=== PATIENT | female | born 1980 | race Caucasian/White ===

== ENCOUNTER 2018-02-20 16:34 | Observation (INO) | payer BC ==
[2018-02-20] MEDS ORDERED: Albuterol/Ipratropium NEB.SOL* Albuterol 2.5 MG/Ipratropium 0.5 MG 3 ML INH ONE (18:03)
--- NOTE | 2018-02-20 18:46 | ED ---
HPI Chest Pain - HPI Summary HPI Summary: This patient is a 37 year old F presenting to [facility] accompanied by her mother with a chief complaint of waxing and waning burning, squeezing left lateral and left anterior CP since 1329. She notes that a few days ago her son had a head cold with a fever, and she was continuously exposed to him. Recently, she denies sx during day, only at night until 02/19/18, when she felt full body aches and lethargy during the day; she took a nap which she only does when sick . Since 1329, she endorses chest discomfort that radiates to bilateral shoulder pain and upper back pain, neck aches, RANDALL, decreased appetite, SOB secondary to CP, hot flashes, and new onset sore throat. She denies cough, wheeze, urinary sx, and pain radiation down her arms. She states that she took Tylenol which improved RANDALL. She notes she received her flu shot on January 29. She states she just finished her LMP last week. FHx DM, CAD, [place]. PMHx IBS , C. Diff, sepsis, glasses, asthma (PRN albuterol rarely used). - History of Current Complaint Chief Complaint: EDChestWallPain Time Seen by Provider: 02/20/18 17:28 Hx Obtained From: Patient Hx Last Menstrual Period: a week ago Onset/Duration: Started Hours Ago, Atraumatic, Still Present Timing: Constant Initial Severity: Moderate Current Severity: Moderate Chest Pain Location: Left Anterior, Left Lateral Chest Pain Radiates: Yes Chest Pain Radiates To:: Back, Shoulder, Arm, Neck Character: Burning, Pressure/Squeezing Aggravating Factor(s): Nothing Alleviating Factor(s): Nothing Associated Signs and Symptoms: Positive: Chest Pain, Headaches, Shortness of Breath - secondary to pain, Back Pain, Other: - Neck pain, RANDALL, lethargy, shoulder pain, neck pain, sore throat, hot flashes.. Negative: Fever, Cough, Wheezing - Additional Pertinent History Primary Care Physician: [id number] - Allergy/Home Medications Allergies/Adverse Reactions: Allergies Allergy/AdvReac Type Severity Reaction Status Date / Time amoxicillin [From Augmentin] Allergy Vomiting Verified 02/20/18 17:22 clavulanic acid Allergy Vomiting Verified 02/20/18 17:22 [From Augmentin] codeine Allergy Vomiting Verified 02/20/18 17:22 Home Medications: Home Medications L. Acidophilus/L. Rhamnosus [Probiotic 15 Billion Cell Cap] 1 each PO DAILY [History Confirmed 02/20/18] PMH/Surg Hx/FS Hx/Imm Hx Endocrine/Hematology History: Denies: Hx Diabetes Cardiovascular History: Denies: Hx Hypertension - ORTHOSTATIC HYOPTENSION/SYNCOPE Respiratory History: Reports: Hx Asthma, Hx Seasonal Allergies GI History: Reports: Hx Gastroesophageal Reflux Disease, Hx Irritable Bowel History: Denies: Hx Dialysis, Hx Renal Disease Musculoskeletal History: Reports: Hx Back Problems - lower lumbar compression fracture in childhood Sensory History: Denies: Hx Legally Blind, Hx Deafness Opthamlomology History: Denies: Hx Legally Blind EENT History: Denies: Hx Deafness Neurological History: Denies: Hx Dementia Psychiatric History: Denies: Hx Schizophrenia - Surgical History Surgery Procedure, Year, and Place: C section August 2011 Hx Anesthesia Reactions: Yes - makes patient sick Infectious Disease History: No Infectious Disease History: Reports: Hx Clostridium Difficile Denies: Traveled Outside the [place] in Last 30 Days - Family History Known Family History: Positive: Cardiac Disease, Diabetes, Other - IBS - Social History Lives: With Family Alcohol Use: Rare Substance Use Type: Reports: None Smoking Status (MU): Never Smoked Tobacco Review of Systems Positive: Fatigue, Other - hot flashes. Negative: Fever, Chills Negative: Erythema Positive: Sore Throat Positive: Chest Pain Positive: Shortness Of Breath. Negative: Cough, Other - wheeze Positive: Other - decreased appetite. Negative: Abdominal Pain, Vomiting, Nausea Negative: dysuria, hematuria Positive: Arthralgia - neck, BL shoulders, upper back, , Myalgia - all over, back, shoulders, neck. Negative: Edema Negative: Rash Neurological: Other - NEGATIVE: dizziness Positive: Headache All Other Systems Reviewed And Are Negative: Yes Physical Exam - Summary Physical Exam Summary: Constitutional: Well-developed, Well-nourished, Alert. (-) Distressed Skin: Warm, Dry HENT: Normocephalic; Atraumatic Eyes: Conjunctiva normal Neck: Musculoskeletal ROM normal neck. (-) JVD, (-) Stridor, (-) Tracheal deviation Cardio: Rhythm regular, rate normal, Heart sounds normal; Intact distal pulses; The pedal pulses are 2+ and symmetric. Radial pulses are 2+ and symmetric. (-) Murmur Pulmonary/Chest wall: Effort normal. (-) Respiratory distress, (-) Wheezes, (-) Rales. No reproducible tenderness. Abd: Soft, (-) epigastric tenderness, (-) Distension, (-) Guarding, (-) Rebound Musculoskeletal: (-) Edema Lymph: (-) Cervical adenopathy Neuro: Alert, Oriented x3 Psych: Mood and affect Normal Triage Information Reviewed: Yes Vital Signs On Initial Exam: Initial Vitals Temp Pulse Resp BP Pulse Ox 97.9 F 92 19 131/77 98 02/20/18 16:36 02/20/18 16:36 02/20/18 16:36 02/20/18 16:36 02/20/18 16:36 Vital Signs Reviewed: Yes Diagnostics - Vital Signs Vital Signs Temp Pulse Resp BP Pulse Ox 02/20/18 17:01 87 15 145/84 98 02/20/18 16:36 97.9 F 92 19 131/77 98 - Laboratory Result Diagrams: 02/20/18 18:50 02/20/18 18:50 Lab Statement: Any lab studies that have been ordered have been reviewed, and results considered in the medical decision making process. - Radiology CXR Xray Interpretation: Positive (See Comments) Radiology Interpretation Completed By: ED Physician - Peribronchial cuffing. Pending official imaging report. - CT CTA chest/thorax CT Interpretation: No Acute Changes CT Interpretation Completed By: Radiologist - Normal CTA chest, no pulmonary embolism. Dr. Chin has reviewed this report. - EKG 2133 Cardiac Rate: NL - 96 EKG Rhythm: Sinus Rhythm Ectopy: None EKG Interpretation: Infero-lateral T-wave flattening. No STEMI. 1645 Cardiac Rate: NL - 81 EKG Rhythm: Sinus Rhythm ST Segment: Normal Ectopy: None EKG Interpretation: No STEMI. Chest Pain Course/Dx - Course Course Of Treatment: A 37-year-old F presents to the ED with a CC of burning, squeezing left anterior and left lateral CP since 1330. (+) RANDALL, decreased appetite, hot flashes, SOB secondary to CP, new onset sore throat, and pain radiation to neck, upper back, BL shoulders. (-) cough, wheeze, urinary sx. her son was sick a couple of days ago with head cold and fever. she experienced RANDALL and aches before the CP and pain radiation. A CXR reveals peribroncial puffing. A CTA chest/thorax was (-). An EKG at 1645 reveals NSR at 82 BPM, no STEMI. An EKG at 2133 reveals NSR at 96 BPM and infero-lateral t-wave flattening. In the ED course, pt was given . aDMISSION, STRESS TEST, d/w [place] - Diagnoses Provider Diagnoses: Chest pain, Acute electrocardiogram changes - Provider Notifications Discussed Care Of Patient With: Brain Smith Time Discussed With Above Provider: 22:00 Instructed by Provider To: Other - accepts admission Discharge - Sign-Out/Discharge Documenting (check all that apply): Patient Departure - admit - Discharge Plan Condition: Fair Disposition: ADMITTED TO [facility] Referrals: Omar Newell, [employer] [Primary Care Provider] - - Attestation Statements Document Initiated by Scribe: Yes Documenting Scribe: Anibal Sheppard Provider For Whom Scribe is Documenting (Include Credential): Dr. Jonathan Chin MD Scribe Attestation: Anibal Wayne, scribed for Dr. Jonathan Chin MD on 02/20/18 at 9297.
[2018-02-20 18:59] LABS: ABS Basophils 0 10^3/ul (0-0.2); ABS Eosinophils 0 10^3/ul (0-0.6); ABS Lymphocytes 0.8 10^3/ul (1.0-4.8); ABS Monocytes 0.2 10^3/ul (0-0.8); ABS Neutrophils 2.7 10^3/ul (1.5-7.7); ABS Nucleated RBC 0 10^3/ul; Eosinophil % 0.3 % (0-6); Hematocrit 39 % (35-47); Hemoglobin 13.2 g/dl (12.0-16.0); Lymphocyte % 22.4 % (25-47); Mean Corpuscular HGB Conc 34 g/dl (31-36); Mean Corpuscular Hemoglobin 28 pg (27-31); Mean Corpuscular Volume 82 fL (80-97); Mean Platelet Volume 8.5 um3 (7.4-10.4); Nucleated Red Blood Cells % 0.1; Platelet Count 160 10^3/ul (150-450); Red Blood Count 4.76 10^6/ul (4.00-5.40); Red Cell Distribution Width 13 % (10.5-15); White Blood Count 3.8 10^3/ul (3.5-10.8)
[2018-02-20 19:24] LABS: EGFR Non-African American 96.8 (>60)
[2018-02-20] MEDS ORDERED: methylPREDNISolone 125 MG* 2 ML VIAL IV ONE (19:36)
[2018-02-20] MEDS ORDERED: Dexamethasone IV* 4 MG/ML 1 ML (4 MG) IV SLOW PU ONE (19:37)
[2018-02-20] MEDS ORDERED: Iohexol 350* (CONTRAST) 500 ML MDV IV ONE (20:07)
--- NOTE | 2018-02-20 20:54 | RAD ---
EXAM: CT Angiography Chest With Intravenous Contrast CLINICAL HISTORY: 37 years old, female; Pain; Chest pain; Type not specified; Additional info: Cp, SOB, eval for pe TECHNIQUE: Axial computed tomographic angiography images of the chest with intravenous contrast using pulmonary embolism protocol. All CT scans at this facility use at least one of these dose optimization techniques: automated exposure control; mA and/or kV adjustment per patient size (includes targeted exams where dose is matched to clinical indication); or iterative reconstruction. MIP reconstructed images were created and reviewed. Coronal and sagittal reformatted images were created and reviewed. CONTRAST: 65 mL of OMNIPAQUE 350 administered intravenously. COMPARISON: OT CXR PORTAP CHEST AP PORTABLE 08/25/2014 5:40 PM FINDINGS: Pulmonary arteries: Unremarkable. No pulmonary embolism. Aorta: No acute findings. No thoracic aortic aneurysm. Lungs: Unremarkable. No mass or consolidation. Pleural space: Unremarkable. No pleural effusion or pneumothorax. Heart: Unremarkable. No significant pericardial effusion. No evidence of RV dysfunction. Bones/joints: No acute fracture or aggressive osseous lesion. Soft tissues: Unremarkable. Lymph nodes: Unremarkable. No enlarged lymph nodes. IMPRESSION: Normal chest CTA. No pulmonary embolism.
[2018-02-20] MEDS ORDERED: Ibuprofen TAB* 600 MG PO ONE (21:17)
[2018-02-20] MEDS ORDERED: Albuterol 2.5 MG/3 ML NEB.SOL* (0.083%) INH ONE (21:23)
[2018-02-20] MEDS ORDERED: Ketorolac INJ* 30 MG/ML 1 ML VIAL IV PUSH ONE (21:29)
[2018-02-20] MEDS ORDERED: Melatonin 3 MG TAB PO PRN (22:23)
[2018-02-20] MEDS ORDERED: Aspirin 81 mg CHEW TAB* 81 MG TAB.CHEW PO ONE (22:23)
[2018-02-20] MEDS ORDERED: Ondansetron ODT TAB* 4 MG PO PRN (22:23)
[2018-02-20] MEDS ORDERED: Metoprolol Tartrate TAB* 25 MG PO ONE (22:24)
[2018-02-20] MEDS ORDERED: NS 0.9% 1000 ML* 1,000 ML IV SCH (22:30)
--- NOTE | 2018-02-20 22:42 | HP ---
H&P (Free Text) History and Physical: PCP: Aicha Newell NP Date/Time: 02/20/2018 2200 CC: chest pain, malaise HPI: Mrs Dela Cruz is a 37YO healthy female whose 6YO son recently had a fever of 102F. Yesterday she was noticeable fatigued with myalgias. Today at work she had a mild headache and around 1330 developed the sudden moderate/severe onset of sharp to dull aching L inframammary chest wrapping around the left to the back worse with deep inspiration and movement and associated with hot flashes, but no F/C, sweats, SOB, light-headedness, changes in bowel/bladder, rash, cough , congestion, or other issues. Tums & GasX did not help. Co-workers convinced her to come to the ED for evaluation which reveals negative blood work excepting a CRP of 30. Initial ECG was normal, but repeat showed diffuse ST-T flattening. Troponins have been negative. Vitals stable. She did develop tachycardia and palpitations after administration of albuterol. PMedHx neurocardiogenic syncope seasonal allergies Ambulatory Orders Multivitamins/Minerals TAB* [Thera M Plus TAB*] 1 tab PO DAILY 04/19/13 Norgestimate-Ethinyl Estradiol [Ortho Tri-Cyclen Lo] 1 tab PO DAILY 04/19/13 Cetirizine* [ZyrTEC 10 MG TAB*] 10 mg PO DAILY 04/16/16 L. Acidophilus/L. 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 ; , 6YO son; full code status FamHx: no early onset CAD/CVA/PAOD; sick contact in son as above ROS: as above, otherwise reviewed and all were negative vitals: Vital Signs Temp 36.6 C 02/20/18 16:36 Pulse 109 02/20/18 22:01 Resp 19 02/20/18 22:01 BP 140/84 02/20/18 22:01 Pulse Ox 98 02/20/18 22:01 Intake & Output 02/19/18 02/20/18 02/20/18 23:59 11:59 23:59 Weight 71.214 kg Constitutional: NAD, normally developed, well-nourished white female HEENM: atraumatic; sclera/conjunctiva: anicteric/clear; hearing: intact; oropharynx: clear, mucosa moist Neck: soft tissue: no nuchal rigidity; thyroid: normal Pulmonary: clear to auscultation bilaterally, good aeration, no accessory muscle use CV: RR/RR, normal S1S2, no carotid bruit, no jugular venous distention, 2+ B DP/ PT, no edema Abdominal: soft, non-distended, non-tender, no rebound/guarding/rigidity, normoactive bowel sounds, no hepatosplenomegaly or masses, no costovertebral angle tenderness Musculoskeletal: general: grossly intact; gait: stable Integumental: no rash or vesicular eruption corresponding to pain Psychiatric orientation: AA&O to PPS affect: calm mood: cooperative/pleasant eye contact: good content: reliable responses: timely insight: good Testing: Lab Results 02/20/18 02/20/18 02/20/18 Range/Units 18:50 18:50 18:50 WBC 3.8 (3.5-10.8) 10^3/ul RBC 4.76 (4.00-5.40) 10^6/ul Hgb 13.2 (12.0-16.0) g/dl Hct 39 (35-47) % MCV 82 (80-97) fL MCH 28 (27-31) pg MCHC 34 (31-36) g/dl RDW 13 (10.5-15) % Plt Count 160 (150-450) 10^3/ul MPV 8.5 (7.4-10.4) um3 Neut % (Auto) 72.2 (38-83) % Lymph % (Auto) 22.4 L (25-47) % Grady % (Auto) 4.5 (0-7) % Eos % (Auto) 0.3 (0-6) % Baso % (Auto) 0.6 (0-2) % Absolute Neuts (auto) 2.7 (1.5-7.7) 10^3/ul Absolute Lymphs (auto) 0.8 L (1.0-4.8) 10^3/ul Absolute Monos (auto) 0.2 (0-0.8) 10^3/ul Absolute Eos (auto) 0 (0-0.6) 10^3/ul Absolute Basos (auto) 0 (0-0.2) 10^3/ul Absolute Nucleated RBC 0 10^3/ul Nucleated RBC % 0.1 Sodium 136 (135-145) mmol/L Potassium 3.6 (3.5-5.0) mmol/L Chloride 103 (101-111) mmol/L Carbon Dioxide 26 (22-32) mmol/L Anion Gap 7 (2-11) mmol/L BUN 13 (6-24) mg/dL Creatinine 0.68 (0.51-0.95) mg/dL Est GFR ( Amer) 117.2 (>60) Est GFR (Non-Af Amer) 96.8 (>60) BUN/Creatinine Ratio 19.1 (8-20) Glucose 96 (70-100) mg/dL Lactic Acid 1.2 (0.5-2.0) mmol/L Calcium 10.0 (8.6-10.3) mg/dL Total Bilirubin 0.30 (0.2-1.0) mg/dL AST 22 (13-39) U/L ALT 18 (7-52) U/L Alkaline Phosphatase 67 (34-104) U/L Troponin I 0.00 (<0.04) ng/mL C-Reactive Protein 30.11 H (<8.01) mg/L Total Protein 7.3 (6.4-8.9) g/dL Albumin 4.4 (3.2-5.2) g/dL Globulin 2.9 (2-4) g/dL Albumin/Globulin Ratio 1.5 (1-3) Influenza A (Rapid) (Negative) Influenza B (Rapid) (Negative) 02/20/18 02/20/18 Range/Units 18:52 20:47 WBC (3.5-10.8) 10^3/ul RBC (4.00-5.40) 10^6/ul Hgb (12.0-16.0) g/dl Hct (35-47) % MCV (80-97) fL MCH (27-31) pg MCHC (31-36) g/dl RDW (10.5-15) % Plt Count (150-450) 10^3/ul MPV (7.4-10.4) um3 Neut % (Auto) (38-83) % Lymph % (Auto) (25-47) % Grady % (Auto) (0-7) % Eos % (Auto) (0-6) % Baso % (Auto) (0-2) % Absolute Neuts (auto) (1.5-7.7) 10^3/ul Absolute Lymphs (auto) (1.0-4.8) 10^3/ul Absolute Monos (auto) (0-0.8) 10^3/ul Absolute Eos (auto) (0-0.6) 10^3/ul Absolute Basos (auto) (0-0.2) 10^3/ul Absolute Nucleated RBC 10^3/ul Nucleated RBC % Sodium (135-145) mmol/L Potassium (3.5-5.0) mmol/L Chloride (101-111) mmol/L Carbon Dioxide (22-32) mmol/L Anion Gap (2-11) mmol/L BUN (6-24) mg/dL Creatinine (0.51-0.95) mg/dL Est GFR ( Amer) (>60) Est GFR (Non-Af Amer) (>60) BUN/Creatinine Ratio (8-20) Glucose (70-100) mg/dL Lactic Acid (0.5-2.0) mmol/L Calcium (8.6-10.3) mg/dL Total Bilirubin (0.2-1.0) mg/dL AST (13-39) U/L ALT (7-52) U/L Alkaline Phosphatase (34-104) U/L Troponin I 0.00 (<0.04) ng/mL C-Reactive Protein (<8.01) mg/L Total Protein (6.4-8.9) g/dL Albumin (3.2-5.2) g/dL Globulin (2-4) g/dL Albumin/Globulin Ratio (1-3) Influenza A (Rapid) Negative (Negative) Influenza B (Rapid) Negative (Negative) ECG, personally reviewed: initially NSR rate 81, no ischemia; follow up: NSR rate 91, diffuse ST-T flattening CXR, personally reviewed: no acute process CTA chest, personally reviewed: IMPRESSION: Normal chest CTA. No pulmonary embolism. Impression: 37F HX neurocardiogenic syncope presents with atypcial chest pain & malaise DIAGNOSIS & PLAN Primary atypcial chest pain w/ ECG changes & malaise : dDX viral syndrome vs pericarditis vs zoster sin herpete vs less likely ACS : telemetry : trend troponin : NSAIDS : ECHO in AM : exercise stress test in AM : trend WBCs & temp curves : supplemental oxgen : supportive care Admission Rational: observation for r/o ACS DVTp: JR Code Status: full HCP:
[2018-02-20] MEDS ORDERED: Metoprolol Tartrate TAB* 25 MG ONE (23:18)
[2018-02-21] MEDS ORDERED: Omeprazole CAP* 20 MG PO SCH (06:00)
[2018-02-21 06:23] LABS: Hematocrit 37 % (35-47); Hemoglobin 12.6 g/dl (12.0-16.0); Mean Corpuscular HGB Conc 34 g/dl (31-36); Mean Corpuscular Hemoglobin 28 pg (27-31); Mean Corpuscular Volume 83 fL (80-97); Mean Platelet Volume 8.7 um3 (7.4-10.4); Platelet Count 163 10^3/ul (150-450); Red Blood Count 4.49 10^6/ul (4.00-5.40); Red Cell Distribution Width 13 % (10.5-15)
--- NOTE | 2018-02-21 06:47 | RAD ---
INDICATION: Shortness of breath. COMPARISON: Comparison is made to prior study from August 25, 2014. TECHNIQUE: Dual-energy PA and lateral views of the chest were obtained. FINDINGS: The heart is within normal limits in size. Mediastinal and hilar contours appear within normal limits. The lungs are clear. No pleural effusion is present. IMPRESSION: NO EVIDENCE FOR ACTIVE CARDIOPULMONARY DISEASE. R1
[2018-02-21] MEDS ORDERED: Ibuprofen TAB* 600 MG PO SCH (07:00)
--- NOTE | 2018-02-21 11:12 | ECHO ---
Patient: ANATOLIY QURESHI [facility] Rec#: [id number] : 1980 Date: 02/21/2018 Age: 37y Height: 170 cm / 66.9 in Weight: 71 kg / 156.5 lbs Sex: F BSA: 1.82 Room#: 440 Admit Date#: 02/20/2018 Type: Inpatient Referring: Brain Smith MD Reading: Estuardo Moss DO [employer] Tender: Michelle Rose,SUNNYCS,RDMS CC: Omar Newell NP Transthoracic Echocardiogram Indication: CP BP: 101/50 HR: 61 Rhythm: NSR Findings History: Hypotension, syncope Technical Comments: The study quality is fair. The study is technically limited due to poor parasternal windows. Left Ventricle: The left ventricular chamber size is normal. There is no left ventricular hypertrophy. Global left ventricular wall motion and contractility are within normal limits. There is normal left ventricular systolic function. The estimated ejection fraction is 60-65%. Normal left ventricular diastolic filling is observed. Left Atrium: The left atrial chamber size is normal. Right Ventricle: The right ventricular chamber size and systolic function are within normal limits. Right Atrium: The right atrial cavity size is normal. Aortic Valve: The aortic valve is trileaflet. Systolic excursion of the aortic valve is normal. There is no evidence of aortic regurgitation. There is no evidence of aortic stenosis. Mitral Valve: The mitral valve leaflets appear normal. There is a trace of mitral regurgitation. There is no evidence of mitral stenosis. Tricuspid Valve: The tricuspid valve leaflets are normal. There is trace tricuspid regurgitation. Unable to estimate the right ventricular systolic pressure. Pulmonic Valve: The pulmonic valve structure is not well visualized. There is no evidence of pulmonic valve thickening. There is no evidence of pulmonic regurgitation. Pericardium: There is no significant pericardial effusion. Aorta: The ascending aorta is not well visualized. There is no dilatation of the aortic arch. The aortic root is normal in size. Pulmonary Artery: The main pulmonary artery is not well visualized. Venous: The inferior vena cava appears normal in size. There is a greater than 50% respiratory change in the inferior vena cava dimension. Conclusions The left ventricular chamber size is normal. There is no left ventricular hypertrophy. There is normal left ventricular systolic function. The estimated ejection fraction is 60-65%. Global left ventricular wall motion and contractility are within normal limits. The left atrial chamber size is normal. The right ventricular chamber size and systolic function are within normal limits. No significant valvular abnormalities noted There is no significant pericardial effusion. None prior for comparison at time of interpretation Measurements Name Value Normal Range RVIDd (AP) 2D 3.1 cm (0.9 - 2.6) RVDdMajor (2D) 2.6 cm (2.2 - 4.4) RAd ISD 4CH 4.3 cm (3.4 - 4.9) RA (A4C)W 2.3 cm (2.9 - 4.6) IVSd (2D) 0.8 cm (0.6 - 1) LVPWd (2D) 0.9 cm (0.6 - 1) LVIDd (2D) 4.6 cm (3.6 - 5.4) LVIDs (2D) 3.3 cm - LV FS 28 % - Aortic Annulus 2.2 cm (1.4 - 2.6) Ao root diameter (2D) 2.8 cm (2.1 - 3.5) Aortic arch 2.5 cm (1.8 - 3.4) LA dimension (AP) 2D 3.4 cm (2.3 - 3.8) LAd ISD 4CH 5.6 cm (2.9 - 5.3) LA ISD 4CH W 3.7 cm (2.5 - 4.5) Name Value Normal Range LA ESV BP (A/L) index 28 ml/m2 - Name Value Normal Range MV E-wave Vmax 0.6 m/sec - MV deceleration time 180 msec - MV A-wave Vmax 0.4 m/sec - MV E:A ratio 1.7 ratio - P. vein S-wave Vmax 0.6 m/sec - P. vein D-wave Vmax 0.5 m/sec - P. vein S:D Vmax ratio 1.2 ratio - P. vein A-wave duration 121 msec - LV septal e' Vmax 0.1 m/sec - LV lateral e' Vmax 0.16 m/sec - LV E:e' septal ratio 6 ratio - LV E:e' lateral ratio 4 ratio - Name Value Normal Range AV Vmax 1.3 m/sec - AV VTI 26 cm - AV peak gradient 7 mmHg - AV mean gradient 3 mmHg - LVOT Vmax 1 m/sec - LVOT VTI 22 cm - LVOT peak gradient 4 mmHg - LVOT mean gradient 2 mmHg - DRAKE Vmax 1.2 m/sec - Name Value Normal Range RAP 8 mmHg - IVC diameter 1.7 cm - Name Value Normal Range PV Vmax 0.7 m/sec - PV peak gradient 2 mmHg -
--- NOTE | 2018-02-21 11:45 | RAD ---
INDICATION: Chest pain, malaise. COMPARISON: No relevant prior exams available on the [facility] PACS for comparison. TECHNIQUE: 10.280 mCi of Tc-99m Myoview were administered IV. SPECT images of the heart were obtained. No CT obtained for attenuation correction. The stress portion of the exam was canceled by Dr. Moss. FINDINGS: Rest images demonstrate a partial perfusion defect involving the posterior mid septal region. IMPRESSION: #. Rest only LEFT ventricular scintigraphy remarkable for a small region of decreased perfusion at the mid posterior septum. This is an indeterminate finding without a stress exam for correlation.
[2018-02-21 12:03] VITALS: BP 93/58
[2018-02-21] MEDS ORDERED: Metoprolol Tartrate TAB* 25 MG PO ONE (22:24)
--- NOTE | 2018-02-22 07:11 | DS ---
CC: Omar Newell NP; Nuha Hernandez MD * DISCHARGE SUMMARY: DATE OF ADMISSION: 02/20/18 DATE OF DISCHARGE: 02/21/18 PRIMARY CARE PROVIDER: Omar Newell NP NEW PRIMARY CARE PROVIDER: Nuha Hernandez MD DISCHARGE DIAGNOSES: 1. Atypical chest pain, likely musculoskeletal. 2. Possible viral infection. MEDICATIONS: 1. Probiotic 1 capsule p.o. daily. 2. Ortho Tri-Cyclen Lo 1 tablet p.o. daily. 3. Multivitamin 1 tablet p.o. daily. 4. Cetirizine 10 mg p.o. daily. New medications: 1. Ibuprofen 600 mg p.o. q.8 hours p.r.n. pain. 2. Acetaminophen 650 mg p.o. q.6 hours p.r.n. pain or fever. HOSPITAL COURSE: Mrs. Dela Cruz is a 37-year-old lady with a past medical history of seasonal allergies, asthma, neurocardiogenic syncope who presented to the emergency room with complaints of chest pain and malaise. Of note is the fact that her son became febrile recently and the day prior to admission, she had fatigue, myalgias, and malaise. She also had some mild headache, some nausea and later on developed chest pain. For more details about her presentation, I refer you to her history and physical. The patient was admitted to the telemetry floor where she had no significant arrhythmias. Serial troponins were negative and her CBC did show mild leukopenia with lymphopenia. She remained afebrile while in the hospital and had improvement of the chest pain. A CTA of the chest was normal with no pulmonary embolism. An echocardiogram showed ejection fraction 60% to 65% and there was no significant pericardial effusion. She underwent an exercise stress test that was negative. Her chest pain was reproducible on palpation and the impression is that the chest pain is musculoskeletal. Her other symptoms may be secondary to a viral infection. The patient is medically stable to be discharged home today to continue symptomatic treatment at home. DIET: Regular diet. ACTIVITY: As tolerated. DISPOSITION: To home. STATUS WHILE IN THE HOSPITAL: Observation. Please keep in mind that this is a summarized version of this patient's hospital stay. If you need more information, please feel free to call me at [phone] or please obtain the full medical records. TIME SPENT: Approximately 40 minutes were spent to complete this discharge. [id number]/CPS #: [id number]
== END 2018-02-21 15:20 | disposition home or self-care (01) ==
LOC: ED 16:34 → MEDTELE 22:19
PROVIDERS: ADMIT Hospitalist; ATTEND Internal Medicine
DX: R07.89 Other chest pain (principal); Z79.899 Other long term (current) drug therapy; Z88.0 Allergy status to penicillin; Z88.8 Allergy status to other drugs, medicaments and biological substances; R00.0 Tachycardia, unspecified; R51 Headache; R06.02 Shortness of breath; Z88.1 Allergy status to other antibiotic agents; R55 Syncope and collapse
CPT/HCPCS: 36415; 71046; 71275; 78451; 80053; 83605; 84484; 84702; 85025; 85027; 86140; 93005; 93306; 96374; 96375; 99285; A9270-GY; A9502; G0378; J1100; J1885; Q9967

== ENCOUNTER 2019-01-24 11:38 | Emergency (ER) | payer BC ==
--- OUTSIDE RECORDS SUMMARY | 2019-01-24 12:02 | XMS REPORT | Continuity of Care Document ---
:1980 External Reference #:[id number] Author Name PHYLLIS Neil Address [address] [place] [address] Care Team Providers Name Role Phone Nuha Hernandez M.D. Care Team Information Agricultural Agent Unavailable Nuha Hernandez M.D. Primary Care Physician Unavailable Payers Date Identification Numbers Payment Provider Subscriber Effective: 2017 Policy Number: [id number] /BS Of JESUS Hali Dela Cruz PayID: [id number] [address] [address] [place] [address] Problems Active Problems Provider Date Atopic dermatitis Nuha Hernandez M.D. Onset: 04/23/2018 Family History Date Family Member(s) Observation Comments Father 65 Father Polymyalgia Rheumatica Father Asthma Mother Irritable Bowel Syndrome Mother Gastroesophageal Reflux Disease (GERD) First Son Asthma First Sister No Current Problems Social History Type Date Description Comments Sex Unknown Marital Status . Lives With Spouse Lives With 2012 Son Diet Healthy, Well Balanced Sleep Reports normal sleep activity [place] [employer] Tobacco Use Start: Unknown Never Smoked Cigarettes ETOH Use Social Alcohol Tobacco Use Start: Unknown Nonsmoker Smoking Status Reviewed: 07/14/18 Nonsmoker Exercise Type/Frequency Exercises regularly take care of animals horse, chickens Allergies, Adverse Reactions, Alerts Active Allergies Reaction Severity Comments Date Clindamycin cdiff, septic 12/26/2018 Inactive Allergies NKDA 04/23/2018 Medications Active Medications SIG Qnty Indications Ordering Provider Date Meclizine HCL take 1 by mouth 90tabs R42 Corazon 12/26/2018 25mg every 8 hours as Nehemias, CAN TENDER Tablets needed dizziness Naproxen 1 by mouth twice a 60tabs R42 Corazon 12/26/2018 500mg day with food Nehemias, CAN TENDER Tablets Rizatriptan Benzoate take one tablet by 14ta G43.109 Corazon 2018 mouth as directed Nehemias, CAN TENDER 5mg Tablets with onset, may repeat in 4 hours if effective first dose Proair Respiclick 1-2 puffs every 6 1units Nuha Hernandez, 04/23/2018 hours as needed M.D. 108(90Base) mcg/Act Aerosol Low-Ogestrel 1 by mouth every Unknown day 0.3-30mg-mcg Tablets Multi For Her Unknown Capsules Zyrtec Allergy take one tablet Unknown 10mg per day Tablets Probiotic 1 by mouth every Unknown Capsules day History Medications Note For Work pt was seen here Asha May, 07/13/2018 - today, tested + Afnp-C 07/20/2018 for flu A , treatment was started today will return to work in 1 week Oseltamivir Phosphate 1 by mouth twice a 10caps Asha May, 2018 - day x 5 days Afnp-C 07/23/2018 75mg Capsules Mometasone Furoate apply to affected 45gm Nuha Hernandez M.D. 07/06/2018 - 0.1% area twice a day x 12/26/2018 Cream 1 week then as needed Eucrisa apply twice a day 60gm Nuha Hernandez M.D. 04/23/2018 - 2% Ointment on ears as needed 12/26/2018 Vital Signs Date Vital Result Comment 12/26/2018 3:38pm BP Systolic 108 mmHg BP Diastolic 70 mmHg Heart Rate 90 /min Body Temperature 97.9 F Height 68 inches 5'8" Weight 164.00 lb BMI (Body Mass Index) 24.9 kg/m2 07/13/2018 12:04pm BP Systolic 100 mmHg BP Diastolic 70 mmHg Heart Rate 96 /min Body Temperature 98.1 F Respiratory Rate 18 /min Height 68 inches 5'8" Weight 162.00 lb BMI (Body Mass Index) 24.6 kg/m2 04/23/2018 3:22pm BP Systolic 120 mmHg BP Diastolic 68 mmHg Heart Rate 72 /min Body Temperature 97.9 F Respiratory Rate 18 /min Height 68 inches 5'8" Weight 165.00 lb BMI (Body Mass Index) 25.1 kg/m2 Results Test Date Facility Test Result H/L Range Note Influenza A&B-fma 07/13/2018 [facility] Influenza A POSITIVE (607)- - Influenza B NEGATIVE CBC Auto Diff 05/08/2018 [facility] [place] Blood Count 5.4 10^3/uL N 3.5-10.8 Red Blood Count 4.79 10^6/uL N 4.00-5.40 Hemoglobin 13.3 g/dL N 12.0-16.0 Hematocrit 40 % N 35-47 Mean Corpuscular Volume 84 fL N 80-97 Mean Corpuscular Hemoglobin 28 pg N 27-31 Mean Corpuscular HGB Conc 33 g/dL N 31-36 Red Cell Distribution Width 13 % N 10.5-15 Platelet Count 220 10^3/uL N 150-450 Mean Platelet Volume 9.2 fL N 7.4-10.4 Abs Neutrophils 2.8 10^3/uL N 1.5-7.7 Abs Lymphocytes 2.1 10^3/uL N 1.0-4.8 Abs Monocytes 0.3 10^3/uL N 0-0.8 Abs Eosinophils 0.1 10^3/uL N 0-0.6 Abs Basophils 0 10^3/uL N 0-0.2 Abs Nucleated RBC 0 10^3/uL Granulocyte % 52.2 % Lymphocyte % 39.4 % Monocyte % 5.6 % Eosinophil % 2.2 % Basophil % 0.6 % Nucleated Red Blood Cells % 0 Comp Metabolic Panel 05/08/2018 [facility] [place] 138 mmol/L N 135-145 Potassium 3.8 mmol/L N 3.5-5.0 Chloride 104 mmol/L N 101-111 Co2 Carbon Dioxide 28 mmol/L N 22-32 Anion Gap 6 mmol/L N 2-11 Glucose 84 mg/dL N 70-100 Blood Urea Nitrogen 17 mg/dL N 6-24 Creatinine 0.69 mg/dL N 0.51-0.95 BUN/Creatinine Ratio 24.6 High 8-20 Calcium 9.3 mg/dL N 8.6-10.3 Total Protein 6.8 g/dL N 6.4-8.9 Albumin 4.2 g/dL N 3.2-5.2 Globulin 2.6 g/dL N 2-4 Albumin/Globulin Ratio 1.6 N 1-3 Total Bilirubin 0.30 mg/dL N 0.2-1.0 Alkaline Phosphatase 73 U/L N 34-104 Alt 10 U/L N 7-52 Ast 13 U/L N 13-39 Egfr Non- 95.2 >60 Egfr 115.2 >60 1 Lipid Profile (Trig/Chol/HDL) 05/08/2018 [facility] [place]iglycerides 217 mg/dL 2 Cholesterol 231 mg/dL 3 HDL Cholesterol 60.7 mg/dL 4 LDL Cholesterol 127 mg/dL 5 Laboratory test finding 05/08/2018 [facility] TSH (Thyroid Stim 1.40 mcIU/mL N 0.34-5.60 Horm) 1 Because ethnic data is not always readily available, this report includes an eGFR for both -Americans and non- Americans. The National Kidney Disease Education Program (NKDEP) does not endorse the use of the MDRD equation for patients that are not between the ages of 18 and 70, are , have extremes of body size, muscle mass, or nutritional status, or are non- or non-. According to the National Kidney Foundation, irrespective of diagnosis, the stage of the disease is based on the level of kidney function: Stage Description GFR(mL/min/1.73 m(2)) 1 Kidney damage with normal or decreased GFR 90 2 Kidney damage with mild decrease in GFR 60-89 3 Moderate decrease in GFR 30-59 4 Severe decrease in GFR 15-29 5 Kidney failure <15 (or dialysis) 2 Desirable: <150 Borderline High: 150-199 High: 200-499 Very High: >500 3 Desirable: <200 Borderline High: 200-239 High: >239 4 Low: <40 Desirable: 40-60 High: >60 5 Desirable: <100 Near Optimal: 100-129 Borderline High: 130-159 High: 160-189 Very High: >189 Encounters Type Date Location Provider Dx Diagnosis Office Visit 07/13/2018 Main Office Madhav Diego10.1 Flu due to oth 12:00p Afnp-C ident influenza virus w oth resp manifest Office Visit 04/23/2018 [facility] Office Nuha Hernandez, L20.84 Intrinsic 3:20p M.D. (allergic) eczema Z00.01 Encounter for general adult medical exam w abnormal findings Plan of Treatment 12/26/2018 - ALFREDO NeilPH53.8 Other visual [id number] Dizziness and giddinessNew Medication:Meclizine HCL 25 mg - take 1 by mouth every 8 hours as needed dizzinessNaproxen 500 mg - 1 by mouth twice a day with foodG43.109 Migraine with aura, not intractable, without status migrainoNew Medication: Rizatriptan Benzoate 5 mg - take one tablet by mouth as directed with onset, may repeat in 4 hours if effective first doseComments:today/tonight trial big doses naproxen with meclizine, go to bed; if you don't rouse tomorrow with relief, try TRIPTAN, and if it fails to provide relief proceed to Emergency Room or returnAllComments:Medication Management Patient Understands medications he 's taking? Yes No Are there Barriers to Adherence? Yes No Has the patient been asked about herbal supplements and therapies, andOTC meds ? Yes No As always, we strongly encourage a healthy diet and making physical activity a part of your every day life. If you have questions about how or where to start, please contact the office.
[2019-01-24] MEDS ORDERED: Ibuprofen TAB* 600 MG PO ONE (13:18)
[2019-01-24 13:59] VITALS: BP 148/88
--- NOTE | 2019-01-25 05:14 | ED ---
Lower Extremity - HPI Summary HPI Summary: This patient is an otherwise healthy 38-year-old female presenting to the ED with a left foot injury. Patient states she was backing up her horse from a trailer when the horse was spooked, stepping onto her boot and dragging the foot backwards. Patient was able to remove the boot prior to any swelling. She endorses some swelling and ecchymosis to the anterior/dorsum of the midfoot without heel or ankle involvement. She has not been ambulatory. She endorses pain with plantarflexion and dorsiflexion. Denies any temperature changes to the foot. Denies any numbness or tingling. Patient has not taken any medication prior to arrival. Ice is given on arrival. - History of Current Complaint Chief Complaint: EDExtremityLower Stated Complaint: LEFT FOOT INJURY PER PT Time Seen by Provider: 01/24/19 11:46 Hx Obtained From: Patient Hx Last Menstrual Period: a week ago Onset of Pain: Hours Onset/Duration: Hours Severity Initially: Moderate Severity Currently: Moderate Pain Intensity: 2 Pain Scale Used: 0-10 Numeric Timing: Constant Location: Is Discrete @ - left sided mid-foot Associated Signs And Symptoms: Positive: Negative Able to Bear Weight: No - Risk Factors Gout Risk Factors: Negative DVT Risk Factors: Negative Septic Arthritis Risk Factor: Negative - Allergies/Home Medications Allergies/Adverse Reactions: Allergies Allergy/AdvReac Type Severity Reaction Status Date / Time amoxicillin [From Augmentin] Allergy Vomiting Verified 01/24/19 11:49 clavulanic acid Allergy Vomiting Verified 01/24/19 11:49 [From Augmentin] clindamycin Allergy See Comment Verified 01/24/19 11:49 codeine Allergy Vomiting Verified 01/24/19 11:49 PMH/Surg Hx/FS Hx/Imm Hx Previously Healthy: Yes Endocrine/Hematology History: Denies: Hx Diabetes Cardiovascular History: Reports: Hx Angina, Hx Coronary Artery Disease Denies: Hx Hypercholesterolemia, Hx Hypertension - ORTHOSTATIC HYOPTENSION/ SYNCOPE, Hx Myocardial Infarction, Hx Valvular Heart Disease Respiratory History: Reports: Hx Asthma, Hx Seasonal Allergies GI History: Reports: Hx Gastroesophageal Reflux Disease, Hx Irritable Bowel History: Denies: Hx Dialysis, Hx Renal Disease Musculoskeletal History: Reports: Hx Back Problems - lower lumbar compression fracture in childhood Sensory History: Reports: Hx Contacts or Glasses - driving and computer Denies: Hx Legally Blind, Hx Deafness, Hx Hearing Aid Opthamlomology History: Reports: Hx Contacts or Glasses - driving and computer Denies: Hx Legally Blind Neurological History: Denies: Hx Dementia Psychiatric History: Denies: Hx Schizophrenia - Surgical History Surgery Procedure, Year, and Place: C section August 2011 Hx Anesthesia Reactions: Yes - makes patient sick - Immunization History Hx Pertussis Vaccination: No Immunizations Up to Date: Yes Infectious Disease History: No Infectious Disease History: Reports: Hx Clostridium Difficile Denies: Hx Hepatitis, Hx Human Immunodeficiency Virus (HIV), Hx of Known/ Suspected MRSA, Hx Shingles, Hx Tuberculosis, Traveled Outside the [place] in Last 30 Days - Family History Known Family History: Positive: Cardiac Disease, Diabetes, Other - IBS - Social History Occupation: Employed Full-time Lives: With Family Alcohol Use: Occasionally Hx Substance Use: No Substance Use Type: Reports: None Hx Tobacco Use: No Smoking Status (MU): Never Smoked Tobacco Review of Systems Negative: Fever, Chills, Fatigue, Skin Diaphoresis Negative: Palpitations, Chest Pain Genitourinary: Negative Positive: no symptoms reported, see HPI Positive: Arthralgia - left mid foot injury with pain. Negative: Myalgia Positive: Bruising Neurological: Negative All Other Systems Reviewed And Are Negative: Yes Physical Exam Triage Information Reviewed: Yes Vital Signs On Initial Exam: Initial Vitals Temp Pulse Resp BP Pulse Ox 98.9 F 88 16 152/89 100 01/24/19 11:41 01/24/19 11:41 01/24/19 11:41 01/24/19 11:41 01/24/19 11:41 Vital Signs Reviewed: Yes Appearance: Positive: Well-Appearing, Well-Nourished Skin: Positive: Warm, Skin Color Reflects Adequate Perfusion, Other - ecchymosis to the mid foot Head/Face: Positive: Normal Head/Face Inspection Eyes: Positive: EOMI, BOB, Conjunctiva Clear Neck: Positive: Supple, No Lymphadenopathy Respiratory/Lung Sounds: Positive: Clear to Auscultation, Breath Sounds Present Cardiovascular: Positive: RRR, Pulses are Symmetrical in both Upper and Lower Extremities Musculoskeletal: Positive: Pain @ - mid foot Neurological: Positive: Speech Normal Psychiatric: Positive: Affect/Mood Appropriate Diagnostics - Vital Signs Vital Signs Temp Pulse Resp BP Pulse Ox 01/24/19 13:58 98.7 F 83 16 148/88 100 01/24/19 11:41 98.9 F 88 16 152/89 100 - Laboratory Lab Statement: Any lab studies that have been ordered have been reviewed, and results considered in the medical decision making process. Lower Extremity Course/Dx - Course Course Of Treatment: This patient is evaluated for left sided mid foot injury. This was a crush injury. X-ray obtained: Normal articularly are negative for fracture. Small perineum accessory ossicle and small bone island at the head of the talus noted. Soft tissue swelling over the dorsum of the ankle through forefoot. No subcutaneous emphysema or conspicuous foreign body. Patient is able to somewhat plantarflex and dorsiflex, however with discomfort. She does not believe she is able to ambulate at this time. She is given crutches and ibuprofen in the ED. She will keep the foot Johnson wrapped for the next few days, ice to the area, elevate when possible, use crutches when needed and bear weight as tolerated. - Diagnoses Differential Diagnosis/HQI/PQRI: Positive: Contusion, Fracture (Closed), Sprain , Strain Provider Diagnoses: Crush injury of foot Discharge ED - Sign-Out/Discharge Documenting (check all that apply): Patient Departure Patient Received Moderate/Deep Sedation with Procedure: No - Discharge Plan Condition: Stable Disposition: HOME Patient Education Materials: Foot Contusion (ED) Referrals: Nuha Hernandez MD [Primary Care Provider] - Additional Instructions: Ibuprofen 600mg three times daily Ice to the area Keep the area elevated as much as possible Johnson wrap - Billing Disposition and Condition Condition: STABLE Disposition: Home - Attestation Statements Provider Attestation: I was available for consult. This patient was seen by the ALVINA. The patient was not presented to, seen by, or examined by me. Norm Bach MD
== END 2019-01-24 13:58 | disposition home or self-care (01) ==
LOC: ED 11:38
DX: S97.82XA Crushing injury of left foot, initial encounter (principal); W55.19XA Other contact with horse, initial encounter; Y92.9 Unspecified place or not applicable; I25.119 Atherosclerotic heart disease of native coronary artery with unspecified angina pectoris; J45.909 Unspecified asthma, uncomplicated; K21.9 Gastro-esophageal reflux disease without esophagitis; Z79.899 Other long term (current) drug therapy; Z88.1 Allergy status to other antibiotic agents; Z88.5 Allergy status to narcotic agent
CPT/HCPCS: 99282